=== PATIENT | male | born 1985 | race African-American/Black ===

== ENCOUNTER 2019-01-05 15:03 | Emergency (ER) | payer MEDICAID ==
[~2019-01-05] VITALS: Ht 170.2 cm; Wt 59.9 kg
[2019-01-05 15:44] VITALS: BP 134/74
[2019-01-05] MEDS ORDERED: AZITHROMYCIN 250 MG TABLET PO ONE (16:30)
[2019-01-05] MEDS ORDERED: CEFTRIAXONE 500 MG VIAL IM ONE (16:30)
[2019-01-05] MEDS ORDERED: CEFTRIAXONE 500 MG VIAL ONE (16:48)
[2019-01-05] MEDS ORDERED: AZITHROMYCIN 250 MG TABLET ONE (16:48)
[2019-01-05] MEDS ORDERED: LIDOCAINE /MPF 1% VIAL 5 ML VIAL ONE (16:49)
== END 2019-01-05 16:45 | disposition home or self-care (01) ==
LOC: ER 15:03
DX: N34.2 Other urethritis (principal)
CPT/HCPCS: 87086; 87491; 87591; 96372; 99283; J0696; J3490